=== PATIENT | male | born 1960 | race Caucasian/White ===

== ENCOUNTER 2019-03-05 08:00 | Outpatient (RCR) | payer OTHER, SELFPAY | END 2019-03-24 10:19 | disposition home or self-care (01) | LOC: PT.CARL 08:00 | PROVIDERS: Visit Provider Nurse Practitioner Family | DX: M54.5 Low back pain (principal) | CPT/HCPCS: 97012; 97014; 97110; 97140; 97163; G0283 ==

== ENCOUNTER → 2019-04-06 13:41 | Outpatient (CLI) | payer OTHER, SELFPAY ==
--- NOTE | 2019-04-06 | CI_ITS ---
Cerebrovascular Exam Indications: 780.4 Dizziness and giddiness. IMPRESSIONS 1. The bilateral vertebral arteries are patent with normal antegrade flow. 2. Study suggests 20-49% stenosis involving the right internal carotid artery and the left internal carotid artery. Carotid duplex study. Complete study and Doppler flow study including spectral analysis, color and whitman scale imaging. Height: Height: 167.6cm. Height: 66in. Weight: Weight: 81.6kg. Weight: 179.6lb. Body mass index: BMI: 29.1kg/m^2. Body surface area: BSA: 1.97m^2. Location: Vascular laboratory. Patient status: Outpatient. Tables: Arterial flow: + +--------+--------+ Location V sys V ed + +--------+--------+ Right CCA - proximal 107cm/s 28.3cm/s + +--------+--------+ Right CCA - distal 91.1cm/s 23.6cm/s + +--------+--------+ Right ECA 93.2cm/s -------- + +--------+--------+ Right ICA - proximal 72.1cm/s 17.9cm/s + +--------+--------+ Right ICA - mid 52.5cm/s 20.6cm/s + +--------+--------+ Right ICA - distal 57.2cm/s 21.8cm/s + +--------+--------+ Right vertebral 39.1cm/s -------- + +--------+--------+ Left CCA - proximal 137cm/s 33.3cm/s + +--------+--------+ Left CCA - distal 94.3cm/s 28.3cm/s + +--------+--------+ Left ECA 136cm/s -------- + +--------+--------+ Left ICA - proximal 83.1cm/s 30cm/s + +--------+--------+ Left ICA - mid 107cm/s 32.9cm/s + +--------+--------+ Left ICA - distal 81.7cm/s 25.1cm/s + +--------+--------+ Left vertebral 50.3cm/s -------- + +--------+--------+ Velocity ratios: + + + + + + Right, V sys Right, V ed Left, V sys Left, V ed + + + + + + Max ICA/dist CCA 0.79 0.92 1.13 1.16 + + + + + + (Report amended ) Electronically signed by: Magdiel Khalil [id number]
== END ==
PROVIDERS: PCP Nurse Practitioner Family; Visit Provider Nurse Practitioner Family
DX: R42 Dizziness and giddiness (principal)
CPT/HCPCS: 93880

== ENCOUNTER → 2021-03-14 08:19 | Outpatient (CLI) | payer OTHER, SELFPAY ==
--- NOTE | 2021-03-14 08:32 | MR_ITS ---
PROCEDURE: MR HEAD/BRAIN WO CON CLINICAL INDICATION: DIZZINESS AND GIDDINESS Loss of balance. If turning head too fast, gets dizzy. Symptoms worse x2-3months. No injury or trauma. Headache behind lt eye. No prior. COMPARISON: No exams were available for comparison TECHNIQUE: Routine multiplanar multi echo sequences are performed without gadolinium enhancement. FINDINGS: No midline shift, mass effect, intracranial hemorrhage, or hydrocephalus. No evidence of acute infarction. The cerebellopontine angles, cerebellum, and brainstem have an unremarkable appearance. There is mild generalized atrophy. There are scattered periventricular and subcortical T2 white matter hyperintensities which are nonspecific. There is no temporal lobe involvement and no corpus callosum ule involvement. The basal ganglia are also unremarkable. The pituitary, optic chiasm, and corpus callosum have an unremarkable appearance. Craniocervical junction is unremarkable. The hippocampal gyri and temporal horns are symmetric. No mastoid effusion or sinus air-fluid level. IMPRESSION: No acute intracranial findings. There are scattered periventricular and subcortical T2 white matter hyperintensities. Differential diagnosis would include microangiopathic changes, migraine headache, or demyelinating process. Please correlate with clinical parameters. Dictated by: Magdiel Khalil MD 03/16/2021 12:20 Magdiel Khalil MD in [place] 03/16/2021 12:20
== END ==
PROVIDERS: PCP Nurse Practitioner Family; Visit Provider Nurse Practitioner Family
DX: R42 Dizziness and giddiness (principal)
CPT/HCPCS: 70551

== ENCOUNTER 2024-01-13 08:39 | Emergency (ER) | payer OTHER, SELFPAY ==
[2024-01-13 08:40] VITALS: BP 121/70; PULSE 92; RESP 15; TEMP 36.6; O2SAT 99; BMI 30.7
--- NOTE | 2024-01-13 08:58 | ED_ITS ---
Discharge Plan Disposition Patient Disposition: Home, Self-Care Prescriptions Prescriptions: New lidocaine 4 % adhesive patch,medicated 1 patch topical DAILY Qty: 5 0RF Rx Instructions: may leave on for up to 12 hrs ibuprofen 800 mg tablet 800 mg PO TID PRN (Reason: pain) 7 Days Qty: 20 0RF cyclobenzaprine 5 mg tablet 5 mg PO TID PRN (Reason: muscle spasm) 5 Days Qty: 15 0RF No Action amlodipine 10 mg tablet 10 mg PO DAILY aspirin 81 mg tablet,delayed release (DR/EC) 81 mg PO DAILY chromium amino acid chelate 400 mcg tablet 400 mcg PO DAILY citalopram 20 mg tablet 20 mg PO DAILY diclofenac sodium 1 % gel 2 g topical QID Rx Instructions: apply to single elbow, wrist or hand; for hand includes palm/fingers/back of hand clotrimazole 1 % cream 1 applic topical BID ezetimibe 10 mg tablet 10 mg PO DAILY glimepiride 4 mg tablet 4 mg PO DAILY Jardiance 25 mg tablet 25 mg PO DAILY lisinopril-hydrochlorothiazide 20-25 mg tablet 1 tab PO DAILY metoprolol tartrate 25 mg tablet 25 mg PO BID omeprazole 20 mg capsule,delayed release(DR/EC) 20 mg PO DAILY paroxetine HCl 10 mg tablet 10 mg PO DAILY pioglitazone 45 mg tablet 45 mg PO DAILY potassium chloride 10 mEq capsule, extended release 10 meq PO DAILY sildenafil 50 mg tablet 50 mg PO DAILY PRN Rx Instructions: administer 30 minutes to 4 hours before activity tamsulosin 0.4 mg capsule 0.4 mg PO DAILY tizanidine 4 mg tablet 4 mg PO HS PRN Trulicity 3 mg/0.5 mL pen injector 3 mg SQ WEEKLY ascorbate calcium (vitamin C) 500 mg tablet 500 mg PO DAILY Referrals Follow up/Referrals: Marina Lane [Primary Care Provider] - See instructions Activity Restrictions/Add. Instructions Additional Instructions/Restrictions: Your symptoms are consistent with sciatica. If you have any significant wors ening of your lower extremity weakness numbness between your legs bowel or bladder incontinence or other significant concerns please return to the emergency department as discussed. Given the chronicity of your symptoms may be reasonable to revisit surgical discussions with your neurosurgeon as well. Clinical Impressions Clinical Impression: Sciatica Discharge ED Provider: Emily Pizarro General Adult HPI General Stated complaint: lower back pain Time Seen by Provider: 01/13/24 08:44 History of Present Illness HPI narrative: Patient is a 63-year-old male presenting today with acute on chronic left lower back pain. States that he has a known diagnosis of degenerative disc disease he is followed by neurosurgeon at [facility] has had MRIs in the past has been advised that he needs surgery but he states he is will not let them. He has chronic left lower extremity weakness to the point where he needs to walk with a cane and he states that this is at its baseline may be a slight bit worse but nothing significant. Denies any bowel or bladder incontinence or saddle anesthesia. States that his pain is located in the left lumbosacral region off the midline radiates down the left lateral aspect of his leg is associated with a fiery sensation and some paresthesias. Denies any history of cancer any fevers or new injuries. Specifically states he does not want any sedating med ications today. Related Data Home Medications Medication Instructions Recorded Confirmed amlodipine 10 mg tablet 10 mg PO DAILY 08/27/22 10/14/23 ascorbate calcium (vitamin C) 500 500 mg PO DAILY 08/27/22 10/14/23 mg tablet aspirin 81 mg tablet,delayed 81 mg PO DAILY 08/27/22 10/14/23 release chromium amino acid chelate 400 400 mcg PO DAILY 08/27/22 10/14/23 mcg tablet citalopram 20 mg tablet 20 mg PO DAILY 08/27/22 10/14/23 clotrimazole 1 % topical cream 1 applic topical BID 08/27/22 10/14/23 diclofenac sodium 1 % topical gel 2 g topical QID 08/27/22 10/14/23 dulaglutide 3 mg/0.5 mL 3 mg SQ WEEKLY 08/27/22 10/14/23 subcutaneous pen injector (Trulicity) empagliflozin 25 mg tablet 25 mg PO DAILY 08/27/22 10/14/23 (Jardiance) ezetimibe 10 mg tablet 10 mg PO DAILY 08/27/22 10/14/23 glimepiride 4 mg tablet 4 mg PO DAILY 08/27/22 10/14/23 lisinopril 20 1 tab PO DAILY 08/27/22 10/14/23 mg-hydrochlorothiazide 25 mg tablet metoprolol tartrate 25 mg tablet 25 mg PO BID 08/27/22 10/14/23 omeprazole 20 mg capsule,delayed 20 mg PO DAILY 08/27/22 10/14/23 release paroxetine HCl 10 mg tablet 10 mg PO DAILY 08/27/22 10/14/23 pioglitazone 45 mg tablet 45 mg PO DAILY 08/27/22 10/14/23 potassium chloride 10 mEq 10 meq PO DAILY 08/27/22 10/14/23 capsule,extended release sildenafil 50 mg tablet 50 mg PO DAILY PRN 08/27/22 10/14/23 tamsulosin 0.4 mg capsule 0.4 mg PO DAILY 08/27/22 10/14/23 tizanidine 4 mg tablet 4 mg PO HS PRN 08/27/22 10/14/23 Previous Rx's Medication Instructions Recorded cyclobenzaprine 5 mg tablet 5 mg PO TID PRN muscle spasm 5 01/13/24 days #15 tabs ibuprofen 800 mg tablet 800 mg PO TID PRN pain 7 days #20 01/13/24 tabs lidocaine 4 % topical patch 1 patch topical DAILY #5 ea 01/13/24 Allergies Allergy/AdvReac Type Severity Reaction Status Date / Time codeine Allergy Severe Anaphylaxis Verified 10/14/23 13:12 [facility] Disclaimer: The information contained in this section may have been updated after the patient was seen, as this information can be updated by other users. Family History (Updated 10/14/23 @ 13:17 by BE Fraga) Father Alcoholism Sister Diabetes Hypertension Mother Heart attack Grandmother Hypertension Social History (Updated 08/27/22 @ 13:11 by Ambika Herrera [facility]) Smoking Status: Never smoker second hand exposure: No alcohol intake: never substance use type: denies use current occupational status: retired and disabled Travel in the last 8 weeks: None adopted: No marital status: single number of children: 1 number of grandchildren: 8 service: No penitentiary: No pets and animals: Yes ROS Obtained: Yes All systems reviewed & no additional complaints except as documented Physical Exam General General appearance: alert and in no apparent distress Respiratory Respiratory exam: Present normal lung sounds bilaterally Cardiovascular Cardiovascular exam: Present regular rate Extremities Exam Extremities exam: Present other (Patient has tenderness in the left lumbar sacral region nothing in the midline, he has 5 out of 5 strength in plantarflexion dorsiflexion at the ankle and the great toe he has normal sensation in the saddle region he has significant pain with any extension of the hip) Neurological Exam Neurological exam: Present alert and oriented X3 Medical Decision Making Kd Inquiry Pt receiving controlled substance: No Orders (Tests/Meds): ED MEDICATIONS Discontinued Medications Generic Name Dose Route Start Last Admin Trade Name Akash PRN Reason Stop Dose Admin Dexamethasone 10 mg 01/13/24 08:54 Dexamethasone 4mg Tablet PO 01/13/24 08:55 ONCE ONE Ketorolac Tromethamine 60 mg 01/13/24 08:54 Ketorolac 60mg/2ml Vial IM 01/13/24 08:55 ONCE ONE Lidocaine 1 each 01/13/24 08:54 Lidocaine 5% Transdermal Patch TP 01/13/24 08:55 ONCE ONE Medical Decision Narrative: 63-year-old man with acute on chronic symptoms consistent with sciatica and degenerative disc disease. He does not have any red flags from history or physical standpoint regarding any central or critical stenosis of his spinal cord or nerve roots. He does have some weakness in his left lower extremity that he states is chronic. Nothing that appears to be central such as would be associated with cauda equina. I did discuss with him specific symptoms to look for in terms of when to return. He was given Toradol dexamethasone and lidocaine patch and sent home with inflammatory medications and muscle laxer as well as additional lidocaine patches. Given the chronicity of this have advised that he follow-up with his neurosurgeon as well to discuss further surgical possibilities of his chronic symptoms. He was discharged in stable condition. Critical Care Critical Care Time Critical Care Time: No
[2024-01-13 09:00] VITALS: BP 125/59; PULSE 91; O2SAT 98
[2024-01-13] MEDS: KETOROLAC 60MG/2ML VIAL 60 MG IM (09:12)
[2024-01-13] MEDS: DEXAMETHASONE 4MG TABLET 10 MG PO (09:12)
[2024-01-13] MEDS: LIDOCAINE 5% TRANSDERMAL PATCH 1 EACH TP (09:12)
[2024-01-13 09:24] VITALS: BP 125/59; PULSE 90; RESP 12; TEMP 36.7
== END 2024-01-13 09:24 | disposition home or self-care (01) ==
PROVIDERS: Emergency Provider Student in an Organized Health Care Education/Training Program; PCP Nurse Practitioner Family
DX: M54.32 Sciatica, left side (principal)
CPT/HCPCS: 96372; 99283